=== PATIENT | female | born 1965 | race Caucasian/White ===

== ENCOUNTER 2017-09-01 10:31 | Emergency (ER) | payer OTHER ==
[~2017-09-01] VITALS: Ht 157.5 cm; Wt 59.0 kg
[~2017-09-01 10:31] MED LIST: CIPR500T4 PO; DEPO400I IM; TRAM50 PO
[2017-09-01 10:35] VITALS: BP 158/81; PULSE 84; RESP 16; TEMP 99.3; O2SAT 99
[2017-09-01] MEDS ORDERED: MELO15TA20 PO (11:22)
--- NOTE | 2017-09-01 11:22 | PD ---
HPI Chief Complaint: Musculoskeletal Complaint Time Seen by Provider: 11:00 Travel History International Travel<30 days: No Contact w/Intl Traveler<30days: No Traveled to known affect area: No History of Present Illness HPI 52-year-old female here with left shoulder pain 1 day. Patient reports a history of tendinitis with frequent flares within the shoulder. She denies injury or trauma to the shoulder. 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 She denies chest pain or shortness of breath. Severity mild to moderate. Aggravated by movement of the shoulder and relieved with rest. PFSH Past Medical History Medical History: Denies Significant Hx Diminished Hearing: No Immunizations Current: Yes ?: Not Past Surgical History Appendectomy: Yes Gynecologic Surgery: Yes (R OOPHERECTOMY) Social History Alcohol Use: Yes (OCC) Tobacco Use: No Substance Use: No Allergies-Medications (Allergen,Severity, Reaction): Coded Allergies: Sulfa (Sulfonamide Antibiotics) (Unverified Allergy, Severe, RASH, 09/01/17 ) Reported Meds & Prescriptions Reported Meds & Active Scripts Active No Active Prescriptions or Reported Medications Review of Systems Except as stated in HPI: all other systems reviewed are Neg General / Constitutional: No: Fever Eyes: No: Visual changes HENT: No: Headaches Cardiovascular: No: Chest Pain or Discomfort Respiratory: No: Shortness of Breath Gastrointestinal: No: Abdominal Pain Genitourinary: No: Dysuria Physical Exam Narrative GENERAL: Alert and well-appearing 52-year-old female, resting comfortably on the stretcher, no distress. SKIN: Warm and dry. HEAD: Normocephalic. EYES: No scleral icterus. No injection or drainage. NECK: Supple CARDIOVASCULAR: Regular rate and rhythm RESPIRATORY: Breath sounds equal bilaterally. No accessory muscle use. GASTROINTESTINAL: Abdomen soft, non-tender, nondistended. MUSCULOSKELETAL: No cyanosis, or edema. Left upper extremity:+TTP left anterior shoulder. No deformity. Pain with forward extension and external rotation. 2+ distal pulses. Normal sensation. Brisk cap refill. BACK: Nontender without obvious deformity. No CVA tenderness. Data Data Last Documented VS Vital Signs Date Time Temp Pulse Resp B/P (MAP) Pulse Ox O2 Delivery O2 Flow Rate FiO2 09/01/17 10:35 99.3 84 16 158/81 (106) 99 Orders Orders Ketorolac Inj (Toradol Inj) (09/01/17 11:30) [facility] Medical Decision Making Medical Screen Exam Complete: Yes Emergency Medical Condition: Yes Differential Diagnosis Tendinitis, bursitis, rotator cuff injury Narrative Course 52-year-old female here with left shoulder pain that is reproducible. History of tendinitis in the past. The extremity is neurovascularly intact. Patient was given a shot of Toradol. Prescribed meloxicam. Instructed to follow-up the primary doctor. Diagnosis Primary Impression: Left shoulder pain Qualified Codes: M25.512 - Pain in left shoulder Referrals: Primary Care Physician Additional Instructions: Medication as directed. Avoid heavy lifting or strenuous activity. Scripts Meloxicam (Meloxicam) 15 Mg Tab 15 MG PO DAILY for Arthritis Pain, #30 TAB 0 Refills Prov: Mariposa Vitale 09/01/17 Disposition: 01 DISCHARGE HOME Condition: Stable Mariposa Vitale Sep 01, 2017 11:22
[2017-09-01] MEDS ORDERED: KETOROLAC TROMETHAMINE 60 MG/2 ML (IM) VIAL IM ONE (11:30)
== END 2017-09-01 11:36 | disposition home or self-care (01) ==
LOC: PHEFT 10:31
DX: M25.512 Pain in left shoulder (principal)
CPT/HCPCS: 96372; 99283; J1885